=== PATIENT | female | born 1980 | race Caucasian/White ===

== ENCOUNTER → 2021-02-02 10:08 | Outpatient (CLI) | payer BC, SELFPAY ==
--- NOTE | 2021-02-02 10:27 | XR_ITS ---
PROCEDURE: XR CERVICAL SPINE 5V CLINICAL INDICATION: CHRONIC PAIN,LT SHOULDER PAIN COMPARISON: No exams were available for comparison FINDINGS: Normal alignment. No acute fracture or dislocation. Disc spaces are well preserved with no endplate osteophytes. There is mild right-sided foraminal narrowing at C5-C6 from uncovertebral hypertrophy. No cervical rib apparent. IMPRESSION: Mild right foraminal narrowing at C5-C6 otherwise negative Dictated by: Pavel Mcmillan MD 02/02/2021 14:23 Pavel Mcmillan MD in [facility] 02/02/2021 14:23
--- NOTE | 2021-02-02 10:27 | XR_ITS ---
PROCEDURE: XR SHOULDER LT MIN 2V CLINICAL INDICATION: Left shoulder pain COMPARISON: No exams were available for comparison FINDINGS: No fracture or dislocation. No lytic or blastic change. There is normal mineralization. There are mild osteoarthritic changes of the glenohumeral joint with minimal spurring inferiorly there is mild subacromial stenosis. Other findings:None. IMPRESSION: Mild osteoarthritic change with mild subacromial stenosis Dictated by: Pavel Mcmillan MD 02/02/2021 14:25 Pavel Mcmillan MD in [facility] 02/02/2021 14:25
== END ==
PROVIDERS: PCP Family Medicine; Visit Provider Family Medicine
DX: M25.512 Pain in left shoulder (principal); G89.29 Other chronic pain
CPT/HCPCS: 72050; 73030

== ENCOUNTER → 2021-07-12 10:28 | Outpatient (CLI) | payer BC, SELFPAY | PROVIDERS: PCP Family Medicine; Visit Provider Internal Medicine | DX: R07.9 Chest pain, unspecified (principal) | CPT/HCPCS: 93306 ==

== ENCOUNTER → 2021-07-19 06:21 | Outpatient (CLI) | payer BC, SELFPAY ==
--- NOTE | 2021-07-19 06:22 | NM_ITS ---
APPROVED REPORT Exam: Nuclear Stress Test Patient Location: Outpatient Stress Tech: Smita Singh Stress Nurse: chest pain NM Tech:ROBERTO Beckham RT(R)(N) Ht: 5 ft 0 in Wt: 212 lbs Bra Size: 42dd HR: 70 bpm BP: 113/78 mmHg BSA: 1.91 m2 Procedure: Patient received a 0.4 mg of intravenous Lexiscan, resting heart rate 70 bpm, resting blood pressure 113/78 mmHg, with Lexiscan maximum heart rate achived was 80 bpm which is Less than 85 % of the maximum predicted heart rate and blood pressure was 79/41 mmHg. With Lexiscan, patient denied any complaint of chest pain. Electrocardiogram Resting electrocardiogram shows sinus rhythm, with Lexiscan there is less than 1.[address] segment depression noted from the baseline EKG. The EKG portion of the Lexiscan is nondiagnostic. Cardiac Stress and Resting SPECT Images: Cardiac Stress and Resting SPECT images were obtained using technetium 99m Myoview 31.2 mCi stress and 10.48 mCi at rest. Gated SPECT for analysis of segmental wall motion and calculation of the ejection fraction also done. Cardiac stress and resting SPECT images show uniform myocardial activity without segmental perfusion abnormality, computer derived ejection fraction is 64% with no regional wall motion abnormality, right ventricle is normal size and contractility. Conclusion: 1. The EKG portion of the Lexiscan is nondiagnostic. 2. No scintigraphic evidence of reversible ischemia seen, compared right ejection fraction is 64% with no regional wall motion abnormality, right ventricle is normal size and contractility. 3. Normal Lexiscan Myoview study. Electronically signed by : Michael Angel MD 07/20/2021 10:13:07
--- NOTE | 2021-07-19 06:22 | CA_ITS ---
APPROVED REPORT Exam: Pharmacologic Technologist: Smita Singh, Ht: 5 ft 4 in Wt: 211 lbs BSA: 2.00 m2 HR: 70 bpm BP: 113/78 mmHg Rhythm: NSR, rightward axis, T wave abn in lead 3 only. Medical History Medical History: HTN, Hyperlipidemia, Diabetic ??? Noninsulin Medications: Amlodipine,,,,, Lisinopril,,,,, HCTZ,,,,, Farxiga,,,,, Lipitor,,,,, Tylenol,,,,, Cardiac Risk Factors: Hyperlipidemia, HTN, Diabetes (non-insulin), FHX of CAD Stress Test Details Test: LEXISCAN HR Resting HR: 77 bpm Max Heart Rate (APMHR): 181.943458 bpm Max HR Achieved: 109 bpm Target HR (85% APMHR): 153.977456 bpm % of APMHR: 60.22 Recovery HR: 86 bpm BP Resting BP: 113/78 mmHg Max BP: 118/76 mmHg Recovery BP: 114.0/64.0 mmHg ECG Resting ECG: NSR, rightward axis, T wave abn in lead 3 only Clinical Exercise duration: 04:01 min Highest Stage Achieved: Exercise capacity: 1.0 METs Stress ECG Conclusion During lexiscan pt experinced lightheadedness, neauseated. No CP noted. No arrhythmias noted. NS ST-T changes in lead aVF and exaggeration of baseline abns in lead 3. Non diagnostic lexiscan stress. Myoview images reported separately. Test Summary REST . . . . . . . Sitting REST 02:51 . . 77 . 113/ 78 . . Stage 1 01:00 . . 108 . . . . Stage 2 01:00 . . 72 . . . . Stage 3 01:00 . . 85 . 79/ 41 . . Stage 4 01:00 . . 88 . 108/ 60 . . Stage 4 01:01 . . 88 . 108/ 60 . Stop exercise at 04:01 RECOVERY 01:00 . . 92 . 114/ 64 . . RECOVERY 02:00 . . 89 . 116/ 73 . . RECOVERY 03:00 . . 90 . 116/ 73 . . RECOVERY 04:00 . . 88 . 117/ 76 . . RECOVERY 04:37 . . 89 . 118/ 76 . . Electronically signed by : Michael Angel MD 07/20/2021 10:10:40
== END ==
LOC: RAD 06:22
PROVIDERS: PCP Family Medicine; Visit Provider Physician Assistant
DX: R07.89 Other chest pain (principal); I10 Essential (primary) hypertension; E13.69 Other specified diabetes mellitus with other specified complication; E78.5 Hyperlipidemia, unspecified
CPT/HCPCS: 78452; 93017; A9502; J2785